=== PATIENT | male | born 1990 | race Asian ===

== ENCOUNTER 2016-06-01 16:36 | Emergency (ER) | payer OTHER ==
[2016-06-01 16:45] VITALS: O2SAT 98
--- NOTE | 2016-06-01 16:59 | EDPHY ---
H & P Stated Complaint: hematuria x 1 week sent from HPI/ROS: CHIEF COMPLAINT: HISTORY OF PRESENT ILLNESS: The patient is a 25 year old male with history of type 1 diabetes, sent here form [facility] with continued hematuria over the past 2 weeks. The patient has been seen three times at [facility] for this issue. He was diagnosed with a urinary tract infection and has had two courses of antibiotics (he does not know what antibiotic he took but thinks that he took the same antibiotic both times). According to blood work done earlier this month his glucose levels have been higher than usual and his Hgb A1C was over ten. The patient returned to [facility] today with continued hematuria and dysuria. He was sent here for further observation. He denies back pain. No fever. No vomiting or diarrhea. No abdominal pain. No significant dysuria, urgency or frequency. He is compliant with his insulin and checks his sugars twice weekly. REVIEW OF SYSTEMS: A ten point review of systems was performed and is negative with the exception of the items mentioned in the HPI. Source: Patient, Other (Friend accompanying him) - Personal History Current Tetanus/Diphtheria Vaccine: Unsure Current Tetanus Diphtheria and Acellular Pertussis (TDAP): Unsure - Medical/Surgical History Hx Asthma: No Hx Chronic Respiratory Disease: No Hx Diabetes: Yes Hx Cardiac Disease: No Hx Renal Disease: No Hx Cirrhosis: No Hx Alcoholism: No Hx HIV/AIDS: No Hx Splenectomy or Spleen Trauma: No Other PMH: DM2. hx "elevated irregular heartbeat" - Social History Smoking Status: Current every day smoker Additional Social History: From [place]. Student at [employer]. Friend at bedside. - Physical Exam Exam: General Appearance: Alert. Vital signs reviewed. Blood pressure 125/70, heart rate 112 at triage. Eyes: Pupils equal and round, no conjunctival injection, no discharge. Anicteric. ENT, Mouth: Mucous membranes are moist, no oropharyngeal erythema or edema. Neck: No lymphadenopathy, supple. Respiratory: Lungs are clear to auscultation; no wheezes, rales, or rhonchi. Cardiovascular: Slightly tachycardic; no murmur, rub, or gallop. Gastrointestinal: Abdomen is soft and nontender, no masses or organomegaly, bowel sounds normal. Skin: Warm and dry, no rashes on exposed skin, normal color. Back: Nontender to palpation over the thoracolumbar spine. No CVAT. Extremities: No lower extremity edema, no calf tenderness or swelling. Neurological: Alert and oriented. Moving all four extremities easily and equally. Psychiatric: Normal affect. Constitutional: Initial Vital Signs Temperature (C) 36.5 C 06/01/16 16:42 Heart Rate 112 H 06/01/16 16:42 Respiratory Rate 16 06/01/16 16:42 Blood Pressure 125/70 H 06/01/16 16:42 O2 Sat (%) 98 06/01/16 16:42 O2 Delivery Mode Room Air Allergies/Adverse Reactions: No Known Allergies Allergy (Verified 01/24/16 17:29) Home Medications: Medication Instructions Recorded APIDRA SOLOSTAR 01/22/16 Insupen 01/22/16 Januvia 100 MG (*) 01/22/16 Lantus 100 UNITS/ML (*) 01/22/16 Lisinopril 01/22/16 Ranitidine HCl 01/22/16 levOFLOXACIN [levAQUIN (RX)] 750 mg PO DAILY #6 tab 06/01/16 Medical Decision Making - Diagnostics EKG Interpretation: The 12 lead EKG was interpreted by myself. See hard copy and/or "tracemaster" electronic copy for interpretation: Sinus tachycardia, ST elevation c/w repolarization. Rate 105. ED Course/Re-evaluation: UA shows 3+ blood, LE, WBCs and RBCs. No bacteria. Culture sent. He appears comfortable, non-toxic. I do not suspect pyelonephritis (he is comfortable overall, without abdominal or flank pain). I am treating him for UTI but am not 100% certain that infection is the etiology of his hematuria. I do not know what antibiotics he has been on and have chosen levaquin, with the thought that he has had two rounds of antibiotics already. Again, I am not certain that this is an infectious problem but am erring on the side of antibiotics, given that he is diabetic. CBC with WBC of 10.2. Glucose is 156. Renal function normal. DDx includes pylenephritis, UTI, prostatitis, ureterolithiasis. This could be glomerulonephritis secondary to his diabetes. He has appt with diabetic specialist next week. Malignancy is also a possibility. He has not had trauma or participated in strenuous exercise. He is not on medications that might cause hematuria. 8:45 p.m.: I discussed findings with the patient. I suggest he follows up with a urologist due to continued infection/hematuria. He is provided with referral. Importance of FU stressed. A special events director might also be needed, depending on outcomes of his FU with urology and endocrinology. The patient received first dose of Levaquin in the ED. He was initially tachycardic and tells me that this is not unusual for him. No chest pain or trouble breathing. He is not lightheaded. EKG with HR 105 and early repolarization. HR 99 at discharge. - Data Points Laboratory Results: Laboratory Results 06/01/16 18:09 06/01/16 18:09 Microbiology Results: MICROBIOLOGY 06/01/16 17:19 Urine,Clean Catch Urine Culture - Preliminary Medications Given: Discontinued Medications Levofloxacin (Levaquin) 750 mg PO EDNOW ONE PRN Reason: Protocol Stop: 06/01/16 21:07 Last Admin: 06/01/16 21:12 Dose: 750 mg Departure - Departure Disposition: Home, Routine, Self-Care Clinical Impression: Urinary tract infection Qualifiers: Urinary tract infection type: site unspecified Hematuria presence: with hematuria Qualified Code(s): N39.0 - Urinary tract infection, site not specified ; R31.9 - Hematuria, unspecified Condition: Good Instructions: Urinary Tract Infection in Men (ED) Additional Instructions: Take full course of antibiotics as directed. Return to the Emergency Department if you develop inability to urinate, fever, vomiting, or severe pain. Followup with your trade show specialist as scheduled next week. Follow up with urology--call for an appointment. The referral information is written on your discharge papers. For a recheck of your symptoms, you can followup with your primary care physician at [facility]. Referrals: [facility] [Clinic] - As per Instructions Prescriptions: levOFLOXACIN [levAQUIN (RX)] 750 mg PO DAILY #6 tab Report Scribed for: Brynn Garcia Report Scribed by: Delmi Collazo Date of Report: 06/01/16 Time of Report: 17:41 Physician Review and Approval Statement: 06/01/16 16:59 Portions of this note were transcribed by the medical biller. I, Dr. Brynn Garcia, personally performed the history, physical exam, and medical decision- making; and confirmed the accuracy of the information in the transcribed note.
[2016-06-01 17:09] LABS: COLOR YELLOW; LEUKOCYTE ESTERASE,URINE 3+ (NEGATIVE); NITRITE,URINE NEGATIVE (NEGATIVE)
[2016-06-01 17:15] LABS: MUCUS TRACE /lpf (NONE-1+); RBC,URINE 50-182 /hpf (0-3); WBC,URINE 50-182 /hpf (0-3)
--- NOTE | 2016-06-01 17:32 | CPEKG ---
Heart Rate: 105 RR Interval: 571 P-R Interval: 136 QRSD Interval: 74 QT Interval: 324 QTC Interval: 429 P [place]: 73 QRS [place]: 57 T Wave [place]: 32 EKG Severity - OTHERWISE NORMAL ECG - EKG Impression: SINUS TACHYCARDIA EKG Impression: ST ELEV, PROBABLE NORMAL EARLY REPOL PATTERN Electronically Signed By: Brynn Garcia 01-Jun-2016 23:39:51
[2016-06-01 18:26] LABS: % IMMATURE GRANULYOCYTES 0.2 % (0.0-1.1); ABSOLUTE IMMATURE GRANULOCYTES 0.02 10^3/uL (0.00-0.10); ADD DIFF? NO; ADD MORPH? NO; ADD SCAN? NO; ATYPICAL LYMPHOCYTE FLAG 20 (0-99); FRAGMENT RBC FLAG 0 (0-99); HEMOGLOBIN 15.5 g/dL (13.7-17.5); LEFT SHIFT FLG 0 (0-99); LIPEMIA HEMOLYSIS FLAG 90 (0-99); MEAN CELL HEMOGLOBIN 28.5 pg (27.9-34.1); MEAN CELL HEMOGLOBIN CONCENTR. 34.4 g/dL (32.4-36.7); MEAN CELL VOLUME 82.9 fL (81.5-99.8); MEAN PLATELET VOLUME 10.5 fL (8.7-11.7); PLATELET CLUMPS FLAG 0 (0-99); PLATELET COUNT 361 10^3/uL (150-400); RED BLOOD CELL COUNT 5.43 10^6/uL (4.40-6.38); RED CELL DISTRIBUTION WIDTH 13.2 % (11.5-15.2)
[2016-06-01 18:34] LABS: ANION GAP 13 mEq/L (8-16); CARBON DIOXIDE 22 mEq/l (22-31); CHLORIDE 101 mEq/L (97-110); CREATININE 0.8 mg/dL (0.7-1.3); GLOMERULAR FILTRATION RATE > 60; GLUCOSE 156 mg/dL (70-100); POTASSIUM 4.5 mEq/L (3.5-5.2); SODIUM 136 mEq/L (134-144)
[2016-06-01 20:22] LABS: HEMOGLOBIN A1C 9.6 % (4.0-6.0)
[2016-06-01 21:14] VITALS: BP 115/69; PULSE 99; RESP 20; TEMP 97.3
== END 2016-06-01 21:14 | disposition home or self-care (01) ==
DX: N39.0 Urinary tract infection, site not specified (principal); B96.89 Other specified bacterial agents as the cause of diseases classified elsewhere; F17.200 Nicotine dependence, unspecified, uncomplicated; E11.9 Type 2 diabetes mellitus without complications; Z79.4 Long term (current) use of insulin